=== PATIENT | male | born 1935 | race Caucasian/White ===

== ENCOUNTER 2021-01-26 18:14 | Emergency (ER) | payer OTHER, MEDICARE ==
[~2021-01-26] VITALS: Ht 177.8 cm; Wt 95.3 kg
[2021-01-26 18:15] VITALS: BP_SYST 98
[2021-01-26] MEDS ORDERED: DIPH-TET-PERTUS Vaccine 0.5 ML VIAL (ADACEL) I.M. ONE (21:15)
[2021-01-26] MEDS ORDERED: ACETAMINOPHEN 500 MG TABLET PO ONE (21:15)
[2021-01-26 22:00] VITALS: BP_SYST 112
== END 2021-01-26 22:00 | disposition home or self-care (01) ==
LOC: SED 18:14
DX: S81.812A Laceration without foreign body, left lower leg, initial encounter (principal); I10 Essential (primary) hypertension; W45.8XXA Other foreign body or object entering through skin, initial encounter; Y93.89 Activity, other specified; Y92.89 Other specified places as the place of occurrence of the external cause; Y99.8 Other external cause status
CPT/HCPCS: 90715; 99283

== ENCOUNTER 2021-03-07 17:58 | Emergency (ER) | payer OTHER, MEDICARE ==
[~2021-03-07] VITALS: Ht 177.8 cm; Wt 72.6 kg
[2021-03-07 18:00] VITALS: BP_SYST 111
--- NOTE | 2021-03-07 18:19 | NUR ---
Patient to ER bed 04 to gown for evaluation. Side rails up.
--- NOTE | 2021-03-07 19:30 | NUR ---
Assumed care of patient at change of shift. Introduced self to patient, positioned for comfort. Wound care to be performed by EMT Rishi. NVI, crf<3 sec. Full ROM> Patient resting quietly. No acute distress noted. Vital signs within normal range. Bed to low position sr up, continue to monitor.
[2021-03-07 19:59] LABS: BASOPHILS % (AUTO) 0.7 % (0.0-2.0); EOSINOPHILS # (AUTO) 0.2 K/uL (0.0-0.4); EOSINOPHILS % (AUTO) 3.5 % (0.0-4.0); HEMATOCRIT 33.2 % (36-54); HEMOGLOBIN 11.2 g/dL (14.0-18.0); LYMPHOCYTES # (AUTO) 0.6 K/uL (1.0-5.5); LYMPHOCYTES % (AUTO) 11.8 % (20.5-51.5); MEAN CORPUSCULAR HEMOGLOBIN 31 pg (27-31); MEAN CORPUSCULAR HGB CONC 34 % (32-36); MEAN CORPUSCULAR VOLUME 91 fL (79.0-98.0); MONOCYTES # (AUTO) 0.7 K/uL (0.0-1.0); MONOCYTES % (AUTO) 13.2 % (1.7-9.3); NEUTROPHILS # (AUTO) 3.7 K/uL (1.8-7.7); NEUTROPHILS % (AUTO) 70.8 % (40.0-70.0); PLATELET COUNT (AUTO) 157 K/uL (130-430); RED BLOOD CELL COUNT(AUTO) 3.63 MIL/uL (4.2-6.2); RED CELL DISTRIBUTION WIDTH 15.5 % (9.0-15.0); WHITE BLOOD COUNT (AUTO) 5.2 K/uL (4.8-10.8)
[2021-03-07 20:13] LABS: ANION GAP 3 (5-15); CALCIUM 9.5 mg/dL (8.4-11.0); CHLORIDE 101 mmol/L (98-107); CREATININE 1.81 mg/dL (0.55-1.30); GLUCOSE 90 mg/dL (70-99); POTASSIUM 4.2 mmol/L (3.5-5.1); SODIUM SERUM 138 mmol/L (136-145); UREA NITROGEN, BLOOD 49 mg/dL (8-21)
[2021-03-07 20:19] LABS: ALANINE AMINOTRANSFERASE 44 U/L (12-78); ASPARTATE AMINOTRANSFERASE 39 U/L (10-37); TOTAL BILIRUBIN 0.8 mg/dL (0.0-1.0)
[2021-03-07 20:54] LABS: INR 1.6 (0.80-1.20); PROTHROMBIN TIME 16.1 SECS (9.5-12.5)
[2021-03-07 21:00] VITALS: BP_SYST 102
--- NOTE | 2021-03-07 21:31 | NUR ---
Patient and family given written and verbal discharge instructions and verbalizes understanding. ER MD discussed with patient the results and treatment provided. Patient in stable condition. ID arm band removed. Rx of given. Patient and family educated on pain management and to follow up with PMD. Pain Scale 0. Opportunity for questions provided and answered. Medication side effect fact sheet provided.
== END 2021-03-07 21:31 | disposition home or self-care (01) ==
LOC: SED 17:58
DX: S51.011A Laceration without foreign body of right elbow, initial encounter (principal); S50.01XA Contusion of right elbow, initial encounter; I10 Essential (primary) hypertension; I48.91 Unspecified atrial fibrillation; W18.39XA Other fall on same level, initial encounter; Y93.89 Activity, other specified; Y92.89 Other specified places as the place of occurrence of the external cause; Y99.8 Other external cause status
CPT/HCPCS: 36415; 80053; 85025; 85610-TC; 85730-TC; 99284

== ENCOUNTER 2021-04-17 15:27 | Emergency (ER) | payer OTHER, MEDICARE ==
[~2021-04-17] VITALS: Ht 177.8 cm; Wt 77.1 kg
[2021-04-17 15:30] VITALS: BP_SYST 107
--- NOTE | 2021-04-17 15:47 | NUR ---
Placed in room 04 . Placed on viticulture teacher, blood pressure machine and pulse oximeter. To gown for exam. Side rails up. Report given to [facility]
--- NOTE | 2021-04-17 16:03 | NUR ---
PT COMES VIA BLS AFTER FALLING ASLEEP IN WHEELCHAIR AND SLIDING OFF TO GROUND FLOOR SUSTAINING RT SHOULDER /ARM INJURY. PT C/O PAIN AND LIMITED ROM. RADIAL PULSES PRESENT, CAP REFILL<3, DENIES ANY NUMBNESS/TINGLING. ABRASION TO RT SIDE OF NECK AREA NOTED, NO ACTIVE BLEEDING. PT STATES HE WAS DISCHARGED A MONTH AGO TODAY WITH SIMILIAR FALL EPISODE. PT AAOX4, PLEASANT, STATES HE LIVES WITH WHO IS ALSO SICK. HIS SISTER IS A NURSE AND HAS BEEN HELPING A LOT. SAFETY PRECAUTIONS IN PLACE.
--- NOTE | 2021-04-17 17:20 | NUR ---
ER at bedside examining patient.
--- NOTE | 2021-04-17 17:29 | NUR ---
Right elbow laceration and right neck skin tear sites cleansed with sterile saline. petroleum dressing and sterile dressing applied.
[2021-04-17] MEDS ORDERED: CEPH500C2 PO (17:58)
[2021-04-17] MEDS ORDERED: COLL90OI2 TP (17:58)
[2021-04-17] MEDS ORDERED: NEU300 PO (17:58)
[2021-04-17] MEDS ORDERED: ESCI10TA PO (17:58)
[2021-04-17] MEDS ORDERED: TORS20TA23 PO (17:58)
[2021-04-17] MEDS ORDERED: DOCU-156 PO (17:58)
[2021-04-17] MEDS ORDERED: CARV3.1246 PO (17:58)
[2021-04-17] MEDS ORDERED: [UNRECOGNIZED DRUG - CODE] PO (17:58)
[2021-04-17] MEDS ORDERED: ATOR10TA68 PO (17:58)
[2021-04-17] MEDS ORDERED: MAGN400T10 PO (17:58)
[2021-04-17] MEDS ORDERED: ACET-2634 PO (17:58)
[2021-04-17] MEDS ORDERED: SPIR50TA5 PO (17:58)
[2021-04-17] MEDS ORDERED: SENN-295 PO (17:58)
[2021-04-17] MEDS ORDERED: METO5TAB8 PO (17:58)
[2021-04-17] MEDS ORDERED: RIVA15TA PO (17:58)
[2021-04-17] MEDS ORDERED: POTA-80 PO (17:58)
[2021-04-17] MEDS ORDERED: BIMA2.5D5 OP (17:58)
[2021-04-17] MEDS ORDERED: AZIT-62 PO (17:58)
--- NOTE | 2021-04-17 17:59 | NUR ---
Medication reconciliation completed with information provided by PATIENT. Any prior medication reconciliation on file was reviewed and corrected.
--- NOTE | 2021-04-17 18:01 | NUR ---
PT COMES BACK FROM CT SCAN, SKIN TEAR OCCURRED WITH TRANSFERRING FROM CT BED TO [facility]. PERTROLEUM VASELINE DRESSING APPLIED AND KERLIX.
--- NOTE | 2021-04-17 19:30 | NUR ---
with family member at bedside, pt verbalized " 100% does not want to stay overnite at hospital " Dr. Sarabia aware
--- NOTE | 2021-04-17 20:39 | NUR ---
Dr. Sarabia aware Lac repair set up at bedside
[2021-04-17 21:55] VITALS: BP_SYST 108
--- NOTE | 2021-04-17 21:55 | NUR ---
Patient given written and verbal discharge instructions and verbalizes understanding. ER MD discussed with patient the results and treatment provided. Patient in stable condition. ID arm band removed. Patient educated on pain management and to follow up with PMD. Pain Scale 0/10 Opportunity for questions provided and answered.
== END 2021-04-17 21:55 | disposition home or self-care (01) ==
LOC: SED 15:27
DX: S51.011A Laceration without foreign body of right elbow, initial encounter (principal); S09.90XA Unspecified injury of head, initial encounter; I10 Essential (primary) hypertension; I48.91 Unspecified atrial fibrillation; Z79.899 Other long term (current) drug therapy; Z79.01 Long term (current) use of anticoagulants; W05.0XXA Fall from non-moving wheelchair, initial encounter; Y93.89 Activity, other specified; Y92.89 Other specified places as the place of occurrence of the external cause; Y99.8 Other external cause status
CPT/HCPCS: 70450-TC; 72125-TC; 73030; 73060-TC; 73090; 76376; 99285